=== PATIENT | female | born 1985 | race Native Hawaiian/Other Pacific Islander ===

== ENCOUNTER 2016-10-05 11:57 | Emergency (ER) | payer BC, OTHER ==
--- NOTE | 2016-10-05 12:22 | OBHP ---
Datetime: 10/05/2016 12:15 IP Adm Impression: Term, intrauterine ; No Active Labor; Intact Membranes IP Chief Complaint Other: 2P1 at 38 weeks 4days Gestation complains of decreased movement. Sta [place] fetus moving but not as much. 1 previous C/section scheduled for Repeat C/Section on 10/09/16. IP Adm Impression Other: Reactive NST IP Admit Plan: Discharge home Admit Comment, IP Provider: Reactive NST Pelvic Type - PN: Adequate Extremities - PN: Normal Abdomen - PN: Normal Back - PN: Normal Breast - PN: Not Done Lungs - PN: Normal Heart - PN: Normal Thyroid - PN: Not Done Neurologic - PN: Not Done HEENT - PN: Not Done General - PN: Normal Weight - Estimated: 2700 FHR - Baseline A Provider: 150 Membranes, Provider: Intact Gestation - Est Wks by US: 38.0 Vital Signs Provider: Reviewed; Within Normal Limits IP Chief Complaint: evaluation NICHD Variability Prov Fetus A: Moderate 6-25bpm NICHD Accel Fetus A IP Provider: [id number] FHR Category Provider Fetus A: Category I NICHD Decel Fetus A IP Provider: None Genitourinary Exam: Normal DTRs - PN: Normal
== END 2016-10-05 12:19 | disposition home or self-care (01) ==
LOC: C.EROB 11:57
DX: O36.8130 Decreased fetal movements, third trimester, not applicable or unspecified (principal); Z3A.38 38 weeks gestation of pregnancy